=== PATIENT | male | born 1960 | race Caucasian/White ===

== ENCOUNTER → 2017-12-20 | Day surgery (SDC) | payer OTHER ==
[~2017-12-20] VITALS: Ht 182.9 cm; Wt 115.7 kg
[~2017-12-20] MED LIST: PERCOCET 5-3251 EACH PO
--- NOTE | 2017-12-20 13:22 | Operative Report ---
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 General anesthesia was obtained and his abdomen was prepped and draped. The skin in the left upper quadrant was of a local anesthesia and a transverse incision made sharply. The peritoneum was entered percutaneously through 8 mm optical trocar at Shay's point. Pneumoperitoneum was achieved. 2, 8 mm ports were placed in the epigastric region after local anesthesia instilled under direct vision a camera. Patient placed in Trendelenburg, and the robot was docked, targeted and instruments placed under direct vision. I broke scrub and went to the console. Looking at the left inguinal region, there is no significant defect from the inside. I took down the peritoneum 6 cm cranially from the inguinal ring. A flap was created through the avascular plane. We encountered a large indirect fat-containing hernia. It was delivered from the space and reflected inferiorly. The cord structures were dissected from the overlying peritoneum. The direct space was developed as well. There is a large eventration of the direct space. Marco A's ligament was identified as was the pubic tubercle. Once were happy with the dissection, a piece of pariah [employer] firearms instructor 10 x 15 cm was placed in the cavity. Was placed centered over the indirect space and covered the femoral indirect spaces as well. Once were happy the placement of mesh the peritoneum was closed with a running observable 2-0V lock suture. We turned attention to the contralateral side. There was what appeared to be a small indirect re-recurrence after repair of a recurrent hernia preperitoneal he. There is a small indirect defect. I took down the peritoneum but could not dissect the sac off of the cord structures safely. The mesh appeared to be in adequate position. I therefore aborted the procedure to avoid injury to the cord. The hernia was tiny and likely subclinical. The peritoneum was then closed with running V lock suture, 2-0 observable. Ports are then removed and passed off the field. Skin closed with 4-0 Vicryl. Steri-Strips and sterile dressing applied. Sponge and needle counts are correct CC: Griffin LOPEZ,Jewel Hendricks
== END ==
LOC: STS 01:25
DX: K40.91 Unilateral inguinal hernia, without obstruction or gangrene, recurrent (principal); K21.9 Gastro-esophageal reflux disease without esophagitis; J45.909 Unspecified asthma, uncomplicated; E66.9 Obesity, unspecified; Z68.34 Body mass index [BMI] 34.0-34.9, adult
CPT/HCPCS: 49651; 64488; S2900; C9290; J0131; J0690; J2250; J3490